=== PATIENT | female | born 1940 | race Two or more races ===

== ENCOUNTER 2018-07-06 23:05 | Emergency (ER) | payer MEDICARE, OTHER ==
[~2018-07-06] VITALS: Ht 152.4 cm; Wt 77.3 kg
[~2018-07-06 23:05] MED LIST: ADVIL MIGRAI200 M1 PO; ADVIL200 MG; AMOXICILLIN/CL875 MG PO; AMOXICILLIN500 MG PO; AMOXICILLIN875 MG PO; AUGMENTIN500TAB PO; AUGMENTIN875TAB PO; AZITHROMYC200 MG/5 M PO; BROM/PSE/DM PO; CARBAMAZEPIN200 M1 PO; CLARITIN10 M1 PO; CYCLOBENZAPRINE5 MG PO; EXTRA STRENGTH500 MG; FLONASE NASAL50 MCG; FLUARIX QUADRIV1 IN1 IM; GLUCOSAMINE1500 MG PO; MELOXICAM15 MG PO; PERCOCET 10/31 COMBO PO; TRIAM/NYSTAT TOP; TYLENOL 325MG SUP RE; TYLENOL325 MG PO; ZITHROMAX500 MG PO
[2018-07-06] MEDS ORDERED: KEFLEX500 M1 PO (23:49)
[2018-07-06] MEDS ORDERED: MOTRIN400 MG PO (23:49)
[2018-07-06] MEDS ORDERED: BENADRYL 50MG C50 MG PO (23:49)
[2018-07-07 00:21] VITALS: BP 138/77
== END 2018-07-07 00:24 | disposition home or self-care (01) ==
LOC: ED 23:05
DX: T63.461A Toxic effect of venom of wasps, accidental (unintentional), initial encounter (principal)